=== PATIENT | female | born 1995 ===

== ENCOUNTER 2024-06-24 18:04 | Emergency (ER) | payer SELFPAY ==
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
[2024-06-24 18:08] VITALS: BP 146/87; PULSE 108; O2SAT 99
[2024-06-24 18:12] VITALS: BP 139/82; PULSE 62; RESP 16; TEMP 36.1; O2SAT 95; BMI 35.9
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
[2024-06-24 22:36] VITALS: BP 127/67; PULSE 61; RESP 18; TEMP 36.5; O2SAT 100
[2024-06-24 22:40] VITALS: BP 127/67; PULSE 61; RESP 18; TEMP 36.5; O2SAT 100
== END 2024-06-24 22:43 | disposition home or self-care (01) ==
PROVIDERS: Emergency Provider Internal Medicine
DX: S09.90XA Unspecified injury of head, initial encounter (principal); R51.9 Headache, unspecified; M54.2 Cervicalgia; V43.62XA Car passenger injured in collision with other type car in traffic accident, initial encounter; Y93.89 Activity, other specified; Y92.410 Unspecified street and highway as the place of occurrence of the external cause; Y99.8 Other external cause status
CPT/HCPCS: 70450; 72125; 99282; 99284

== ENCOUNTER → 2024-06-24 18:17 | Outpatient (BNV) | payer SELFPAY | PROVIDERS: Visit Provider Radiology Vascular & Interventional Radiology | DX: S09.90XA Unspecified injury of head, initial encounter (principal); V89.2XXA Person injured in unspecified motor-vehicle accident, traffic, initial encounter | CPT/HCPCS: 70450; 72125 ==